=== PATIENT | male | born 1960 | race Caucasian/White ===

== ENCOUNTER → 2016-10-01 | Outpatient (CLI) | payer BC ==
--- NOTE | 2016-10-01 12:59 | Diagnostic Imaging Report ---
Indication: Cough Comparison: None 2 views of the chest obtained. Findings: Cardiomediastinal silhouette and pulmonary vascularity are within normal limits for age. The diaphragmatic contour is smooth and costophrenic angles are sharp. No pleural effusions are identified. The bones are unremarkable. Impression: No acute disease
== END | disposition home or self-care (01) ==
LOC: RAD 11:02
DX: R05 Cough (principal)
CPT/HCPCS: 71020